=== PATIENT | female | born 1955 | race American Indian/Alaskan Native ===

== ENCOUNTER 2019-05-16 09:04 | Outpatient (CLI) | payer BC, OTHER ==
[2019-05-16 11:18] LABS: Basophils # (Auto) 0.1 K/mm3 (0.0-0.1); Basophils % (Auto) 1.2 % (0.0-1.8); Eosinophils # (Auto) 0.1 K/mm3 (0.0-0.4); Eosinophils % (Auto) 1.4 % (0.0-4.3); Hematocrit 39.7 % (30.3-42.9); Hemoglobin 13.3 gm/dl (10.1-14.3); Lymphocytes # (Auto) 2.2 K/mm3 (1.2-5.4); Lymphocytes % (Auto) 47.4 % (13.4-35.0); Mean Corpuscular HGB Conc 34 % (30-34); Mean Corpuscular Volume 92 fl (79-97); Monocytes # (Auto) 0.3 K/mm3 (0.0-0.8); Monocytes % (Auto) 7.3 % (0.0-7.3); Platelet Count 266 K/mm3 (140-440); Red Cell Distribution Width 12.7 % (13.2-15.2)
[2019-05-16 11:33] LABS: Alanine Aminotransferase 10 units/L (7-56); Albumin 4.8 g/dL (3.9-5); BUN/Creatinine Ratio 14; Blood Urea Nitrogen 14 mg/dL (7-17); Calcium 9.4 mg/dL (8.4-10.2); Chol/HDL Ratio 3.01 %; HDL Cholesterol 65 mg/dL (40-59); Hemolysis Index 1; LDL Cholesterol,Direct 125 mg/dL (50-130)
[2019-05-19 13:46] LABS: Vitamin D, 25-OH, D2 <4 ng/mL
== END 2019-05-16 09:05 | disposition home or self-care (01) ==
LOC: LAB 09:04
PROVIDERS: ATTEND Internal Medicine
DX: Z00.01 Encounter for general adult medical examination with abnormal findings (principal); Z13.21 Encounter for screening for nutritional disorder; Z13.29 Encounter for screening for other suspected endocrine disorder; E78.5 Hyperlipidemia, unspecified
CPT/HCPCS: 36415; 80053; 80061; 82306; 82607; 83036; 84443; 85025

== ENCOUNTER 2021-03-24 11:23 | Outpatient (CLI) | payer BC ==
--- NOTE | 2021-03-25 10:43 | Mammography Report ---
DIGITAL SCREENING MAMMOGRAM WITH TOMOSYNTHESIS WITH CAD, 03/24/2021 CLINICAL INFORMATION / INDICATION: Routine Screening Mammography. TECHNIQUE: Digital bilateral 2D and 3D mammography with tomosynthesis was obtained in the craniocaud al and mediolateral oblique projections. Computer-Aided Detection (CAD) analysis was used for interp retation of this study. COMPARISON: 01/07/2020, 11/06/2018 FINDINGS: Breast Density: There are scattered areas of fibroglandular density. No dominant mass, suspicious calcifications, or architectural distortion in either breast. Stable nodules, left breast. No significant interval change. IMPRESSION: No mammographic evidence of malignancy. Follow up recommendation: Routine yearly BI-RADS Category 2: Benign. A "normal" or negative report should not discourage follow up or biopsy of a clinically significant f inding. A written summary of these findings will be mailed to the patient. The patient will be entered into a mammography reporting system which will generate a reminder letter for the patient's next appointmen t at the appropriate interval. The [employer] recommends yearly mammograms starting at age 40 and continuing as l adithya as a woman is in good health. Breast MRI is recommended for women with an approximate 20-25% or greater lifetime risk of breast cancer, including women with a strong family history of breast or ova mara cancer or who have been treated for Hodgkin's disease. Signer Name: Tammy Carlton MD Signed: 03/25/2021 10:39 AM Workstation Name: [id number]
== END 2021-03-24 11:24 | disposition home or self-care (01) ==
LOC: SPVWC 11:23
PROVIDERS: ATTEND Surgery
DX: Z12.31 Encounter for screening mammogram for malignant neoplasm of breast (principal)
CPT/HCPCS: 77063; 77067